=== PATIENT | male | born 1935 | race Caucasian/White ===

== ENCOUNTER 2019-04-21 11:52 | Emergency (ER) | payer OTHER ==
[~2019-04-21] VITALS: Ht 162.6 cm; Wt 74.4 kg
[2019-04-21] MEDS ORDERED: [UNRECOGNIZED DRUG - OTHER] SL (12:35)
[2019-04-21] MEDS ORDERED: LEVOTHYROXINE25 MCG PO (12:35)
[2019-04-21] MEDS ORDERED: HUMALOG MI100 UNIT/2 SQ (12:36)
== END 2019-04-21 15:45 | disposition home or self-care (01) ==
LOC: ER 11:52
DX: S00.83XA Contusion of other part of head, initial encounter (principal); S20.211A Contusion of right front wall of thorax, initial encounter; W18.39XA Other fall on same level, initial encounter; Y93.89 Activity, other specified; Y92.098 Other place in other non-institutional residence as the place of occurrence of the external cause; Y99.8 Other external cause status

== ENCOUNTER 2025-04-13 12:17 | Emergency (ER) | payer OTHER ==
[~2025-04-13] VITALS: Ht 160 cm; Wt 65.8 kg
[~2025-04-13 12:17] MED LIST: HUMALOG MI100 UNIT/2 SQ; LEVOTHYROXINE25 MCG PO; [UNRECOGNIZED DRUG - OTHER] SL
[2025-04-13 17:04] LABS: BASO % 0.3 % (0.1-1.2); EOS # 0.09 (0.04-0.54); EOS % 1.4 % (0.7-7.0); LYMPH # 1.21 (1.18-3.74); LYMPH % 18.6 % (19.3-53.1); MEAN PLATELET VOLUME 10.70 fl (9.4-12.4); MONO # 0.43 (0.24-0.82); MONO % 6.6 % (4.7-12.5); NEUT # 4.73 (1.56-6.13); NEUT % 72.9 % (34.0-71.1); RED CELL DISTRIBUTION WIDTH 14.7 % (11.6-14.4)
[2025-04-13 17:17] LABS: ERYTHROCYTE SEDIMENTATION RATE 19 mm/hr (0-20)
[2025-04-13 17:24] LABS: COVID-19 AG NEGATIVE (NEGATIVE)
[2025-04-13 17:34] LABS: INR 1.07
[2025-04-13 17:42] LABS: ALT/SGPT 19.0 U/L (12-78); AST/SGOT 15.0 U/L (15-37); BILIRUBIN TOTAL 0.45 mg/dL (0.3-1.2); BUN CREA RATIO 18.0 (7.0-25.0); CREATININE SERUM 1.29 mg/dL (0.70-1.30); GFR 52.44; GLOBULINA 4.1 G/DL (2.4-3.5); GLUCOSE FASTING 144.0 mg/dL (65-100); OSMOLALITY SERUM 289.0 MOSM/KG (275-295)
[2025-04-13 18:05] LABS: URINE APPEARANCE Cloudy; URINE BILIRRUBIN Negative (NEGATIVE); URINE BLOOD Trace; URINE COLOR Yellow; URINE GLUCOSE Negative (NEGATIVE); URINE KETONE Negative (NEGATIVE); URINE LEUKOCYTE Negative; URINE NITRATE Negative; URINE PROTEIN Trace (NEGATIVE); URINE UROBILINOGEN 0.2 E.U./dl
[2025-04-13 18:14] LABS: URINE BACTERIA 4.7 uL (0.0-1933); URINE EPITHELIAL CELLS 2.1 uL (0.0-38.8); URINE RBC 5.2 uL (0.0-20.8); URINE WBC 4.6 uL (0.0-23.2)
[2025-04-13 18:17] LABS: URINE CAST 0.29 uL (0.0-1.40)
[2025-04-13] MEDS ORDERED: ZITHROMAX500 MG PO (18:51)
== END 2025-04-13 19:23 | disposition home or self-care (01) ==
LOC: ER 12:18
PROVIDERS: Physician Assistant Medical
DX: J06.9 Acute upper respiratory infection, unspecified (principal); Z20.822 Contact with and (suspected) exposure to COVID-19; E11.9 Type 2 diabetes mellitus without complications; Z79.4 Long term (current) use of insulin; M48.16 Ankylosing hyperostosis [Forestier], lumbar region